=== PATIENT | male | born 1995 | race Caucasian/White ===

== ENCOUNTER 2020-02-16 23:49 | Emergency (ER) | payer MEDICAID ==
[~2020-02-16] VITALS: Ht 185.4 cm; Wt 90.9 kg
[2020-02-17 00:31] VITALS: BP 150/74
[2020-02-17] MEDS ORDERED: LORazepam 2 MG/ML VIAL IM ONE (02:00)
[2020-02-17] MEDS ORDERED: HALOPERIDOL LACTATE 5 MG/ML VIAL IM ONE (02:00)
[2020-02-17] MEDS ORDERED: DIAZEPAM 5 MG TABLET PO ONE (02:15)
[2020-02-17] MEDS ORDERED: CEPH500C2 PO (16:05)
[2020-02-17] MEDS ORDERED: VENL-68 PO (16:05)
[2020-02-17] MEDS ORDERED: BACTDSB PO (16:05)
== END 2020-02-17 02:54 | disposition left against medical advice (07) ==
LOC: EMS 23:49
DX: F15.10 Other stimulant abuse, uncomplicated (principal); F41.9 Anxiety disorder, unspecified

== ENCOUNTER 2020-02-17 15:48 | Emergency (ER) | payer MEDICAID ==
[~2020-02-17] VITALS: Ht 185.4 cm; Wt 90.9 kg
[2020-02-17] MEDS ORDERED: CEPH500C2 PO (16:05)
[2020-02-17] MEDS ORDERED: BACTDSB PO (16:05)
[2020-02-17] MEDS ORDERED: VENL-68 PO (16:05)
[2020-02-17] MEDS: LORazepam 1 MG TABLET PO ONE ×2 (16:29→16:55)
[2020-02-17] MEDS ORDERED: SODIUM CHLORIDE 0.9% 1,000 ML IV ONE ×2 (17:30→18:45)
[2020-02-17 17:41] LABS: BASOPHILS % (AUTO) 0.5 % (0.0-2.0); EOSINOPHILS % (AUTO) 0.7 % (1.0-6.0); HEMATOCRIT 43.3 % (41-53); HEMOGLOBIN 14.3 g/dL (13.5-17.5); LYMPHOCYTES # (AUTO) 4.6 K/uL (1.0-4.8); LYMPHOCYTES % (AUTO) 28.8 % (22.0-44.0); MEAN CORPUSCULAR HEMOGLOBIN 27.9 pg (26.0-34.0); MEAN CORPUSCULAR HGB CONC 33.2 G/dL (31.0-37.0); MEAN CORPUSCULAR VOLUME 84 fL (80-100); MONOCYTES # (AUTO) 1.3 K/uL (0.1-1.0); MONOCYTES % (AUTO) 8.1 % (2.0-9.0); NEUTROPHILS % (AUTO) 61.9 % (40.0-70.0); PLATELET COUNT (AUTO) 360 K/uL (150-450); RED BLOOD CELL COUNT(AUTO) 5.14 MIL/uL (4.50-5.90); RED CELL DISTRIBUTION WIDTH 13.5 % (11.5-14.5)
[2020-02-17 17:41] LABS: AMPHET/METH SCREEN,URINE POSITIVE (NEGATIVE); BARBITURATE SCREEN, URINE NEGATIVE (NEGATIVE); BENZODIAZEPINES SCREEN,URINE POSITIVE (NEGATIVE); CANNABINOID SCREEN,URINE NEGATIVE (NEGATIVE); COCAINE SCREEN,URINE NEGATIVE (NEGATIVE); METHADONE SCREEN, URINE NEGATIVE (NEGATIVE); OPIATE SCREEN,URINE POSITIVE (NEGATIVE)
[2020-02-17 17:44] LABS: PHENCYCLIDINE SCREEN,URINE NEGATIVE (NEGATIVE)
[2020-02-17 17:53] LABS: ANION GAP 11 mmol/L (8-16); CALCIUM, TOTAL 9.6 mg/dL (8.8-10.5); CARBON DIOXIDE 21 mmol/L (22-29); CHLORIDE 102 mmol/L (98-107); CREATININE 1.31 mg/dL (0.60-1.30); GLOMERULAR FILTR. RATE CALC > 60 mL/min (>60); GLUCOSE,RANDOM 97 mg/dL (70-110); POTASSIUM 3.9 mmol/L (3.5-5.1); SODIUM SERUM 134 mmol/L (136-145); UREA NITROGEN, BLOOD 22 mg/dL (7-18)
[2020-02-17 18:19] LABS: ALANINE AMINOTRANSFERASE 37 U/L (12-78); ALBUMIN 4.2 g/dL (3.4-5.0); ALKALINE PHOSPHATASE 62 U/L (46-116); ASPARTATE AMINOTRANSFERASE 53 U/L (15-37)
[2020-02-17 18:27] LABS: CREATINE KINASE, TOTAL ONLY 1401 U/L (39-308)
[2020-02-17 20:20] LABS: ANION GAP 9 mmol/L (8-16); CALCIUM, TOTAL 8.2 mg/dL (8.8-10.5); CARBON DIOXIDE 22 mmol/L (22-29); CHLORIDE 105 mmol/L (98-107); CREATININE 1.12 mg/dL (0.60-1.30); GLOMERULAR FILTR. RATE CALC > 60 mL/min (>60); GLUCOSE,RANDOM 90 mg/dL (70-110); POTASSIUM 4.3 mmol/L (3.5-5.1); SODIUM SERUM 136 mmol/L (136-145); UREA NITROGEN, BLOOD 21 mg/dL (7-18)
[2020-02-17 20:27] LABS: ALANINE AMINOTRANSFERASE 30 U/L (12-78); ALBUMIN 3.5 g/dL (3.4-5.0); ALKALINE PHOSPHATASE 55 U/L (46-116); ASPARTATE AMINOTRANSFERASE 48 U/L (15-37); BILIRUBIN,TOTAL 0.6 mg/dL (0.1-1.0); TOTAL PROTEIN, SERUM 6.6 g/dL (6.4-8.2)
[2020-02-17 20:37] VITALS: BP 154/89
== END 2020-02-17 20:55 | disposition home or self-care (01) ==
LOC: EMS 15:58
DX: M62.82 Rhabdomyolysis (principal); F19.10 Other psychoactive substance abuse, uncomplicated; F41.9 Anxiety disorder, unspecified; R06.02 Shortness of breath; Z79.899 Other long term (current) drug therapy
CPT/HCPCS: 36415; 80053; 80307; 82550; 85025; 99285; J7030